=== PATIENT | female | born 1935 | race Caucasian/White ===

== ENCOUNTER 2016-09-06 16:43 | Emergency (ER) | payer OTHER ==
[~2016-09-06] VITALS: Ht 162.6 cm; Wt 72.6 kg
[~2016-09-06 16:43] MED LIST: AZITHROMYCIN250 M1 PO; DOXAZOSIN MESYLA8 M1 PO; METHYLPREDNISOLO4 M1 PO; PREDNISONE20 M1 PO; TESSALON PERLE100 M1 PO; ZITHROMAX500 M2 PO
--- NOTE | 2016-09-06 17:25 | ED MVC/FALL/TRAUMA COMPLAINT ---
History of Present Illness General Chief Complaint: Facial or Head Injury Stated Complaint: FALL DOWN 2-3 STAIRS,HEAD INJURY, (-) LOC Source: patient Exam Limitations: no limitations Vital Signs & Intake/Output Vital Signs & Intake/Output Vital Signs Date Time Temp Pulse Resp B/P B/P Pulse O2 O2 Flow FiO2 Mean Ox Delivery Rate 09/06 1840 98.3 89 15 124/74 100 Room Air 09/06 1726 99 Room Air 09/06 1651 97.8 89 16 135/78 96 Room Air Allergies Coded Allergies: cefadroxil (RASH 09/06/16) Reconcile Medications Acetaminophen (Tylenol Extra Strength) 500 MG TABLET 0.5 TAB PO DAILY PAIN ( Reported) Doxazosin Mesylate (Cardura) 4 MG TABLET 1 TAB PO DAILY BP (Reported) Methylprednisolone (Medrol) 4 MG TABLET 1 TAB PO DAILY POLYMYALGIA (Reported) Triage Note: PT STATES SHE FELL PUTTING GARBAGE. PT STATES SHE CAME UP FROM THE BASEMENT GOT TO THE SECOND STEP AND FELL BACK ON THE CEMENT FLOOR. NO LACERATION NOTED TO BACK OF HEAD. -LOC PT STATES SHE TAKES MEDROL AND STATES NO OTHER BLOOD THINNERS. Triage Nurses Notes Reviewed? yes HPI: Patient is an 81-year-old female presents complaining of head injury status post fall. Patient was walking upstairs when she slipped and fell falling down approximately 2-3 stairs. Patient struck the posterior scalp against the ground. Patient reports injury occurred approximately one hour ago. Pain is moderate, worsens with palpation. Patient denies taking anticoagulants or antiplatelets, is on prednisone chronically. Patient denies loss of consciousness, blurred vision, numbness, weakness, vomiting. (JOANNE CASILLAS) Past History Travel History Traveled to [place] past 21 day No Medical History Any Pertinent Medical History? see below for history Neurological: NONE EENT: NONE Cardiovascular: hypertension Respiratory: bronchitis Gastrointestinal: NONE Hepatic: NONE Renal: NONE Musculoskeletal: NONE Psychiatric: NONE Endocrine: NONE Blood Disorders: POLYMILITIS Cancer(s): NONE History of MRSA: No History of VRE: No History of CDIFF: No Surgical History Surgical History: non-contributory Psychosocial History Who do you live with Patient/Self Services at Home None What is your primary language Yoruba Tobacco Use: Quit >30 days ago ETOH Use: occasional use Illicit Drug Use: denies illicit drug use Family History Hx Contributory? No (JOANNE CASILLAS) Review of Systems Review of Systems Constitutional: Denies: chills, fever. Eyes: Denies: blurred vision. Ears, Nose, Throat, Mouth: Reports: no symptoms. Respiratory: Denies: cough, short of breath. Cardiovascular: Denies: chest pain, syncope. Gastrointestinal/Abdominal: Denies: abdominal pain, vomiting. Genitourinary: Reports: no symptoms. Musculoskeletal: Denies: back pain, neck pain. Skin: Reports: no symptoms. Neurological/Psychological: Reports: see HPI. (JOANNE CASILLAS) Physical Exam Physical Exam General Appearance: well developed/nourished, alert, awake Head: occipital scalp hematoma approximately 5 cm with tenderness. Eyes: Bilateral: normal appearance, PERRL, EOMI. Ears, Nose, Throat, Mouth: hearing grossly normal, moist mucous membrane Neck: normal inspection, supple, full range of motion, no midline or paraspinal tenderness Respiratory: chest non-tender, no respiratory distress, lungs clear Cardiovascular: regular rate/rhythm Gastrointestinal: soft, non-tender Back: normal inspection, normal range of motion, no vertebral tenderness Extremities: normal range of motion, full range of motion of all 4 extremities. no focal bony tenderness Neurologic/Psych: no motor/sensory deficits, awake, alert, oriented x 3, director of safety and security II- XII nml as tested Skin: warm/dry Core Measures ACS in differential dx? No Severe Sepsis Present: No Septic Shock Present: No (JOANNE CASILLAS) Progress Differential Diagnosis: aoritic dissection, abd injury, C/T/L spine injury, ext injury, ICH, pelvis injury, pnemothorax, spinal cord injury Plan of Care: Orders Procedure Date/time Status CT HEAD WO IV CONTRAST 09/[address] CERV SPINE WO IV CONTRAST 09/06 [address] Jack. Results of CT scans discussed with patient. No acute neurologic abnormalities. Patient appears stable for discharge. (JOANNE CASILLAS) Diagnostic Imaging: Viewed by Me: CT Scan. Discussed w/RAD: CT Scan. Comments: PATIENT: AGGIE WYNNE PRESENT AGE: 81 PATIENT ACCOUNT NO: [id number] : 36 LOCATION: [facility] ORDERING PHYSICIAN: JOANNE SAGE SERVICE DATE: 09/06/16 EXAM TYPE: CAT - CT CERV SPINE WO IV CONTRAST; CT HEAD WO IV CONTRAST EXAMINATION: CT HEAD AND CERVICAL SPINE WITHOUT CONTRAST CLINICAL INFORMATION: Occipital hematoma following fall. Evaluate for acute intracranial hemorrhage. COMPARISON: None. TECHNIQUE: Contiguous axial imaging was performed from the thoracic inlet to the vertex without intravenous administration of contrast. 2-D coronal and sagittal reformatted images were obtained at the acquisition workstation. DLP: 873 mGy-cm. FINDINGS: Head: Noncontrast CT imaging of the head demonstrates a large right parieto-occipital hematoma with associated soft tissue swelling. No acute intracranial abnormality is identified. There is no acute intracranial hemorrhage, mass or mass effect or abnormal extra-axial fluid collections. The density within the dural venous sinuses is within normal limits. The ventricles are normal in size, without hydrocephalus. There are no focal areas of hypoattenuation within a vascular distribution to suggest acute transcortical ischemia. The basilar cisterns are patent. No acute calvarial abnormality is identified. Soft tissues appear unremarkable. The imaged paranasal sinuses and mastoid air cells are well aerated. Cervical spine: Noncontrast CT of the cervical spine demonstrates moderate to severe multilevel degenerative disc disease and facet arthrosis of the cervical spine. Degenerative changes are most significant at the atlantoaxial articulation as well as at C4-C5. No acute cervical spine fracture or subluxation is identified. Vertebral body heights appear grossly preserved. The atlantoaxial and craniocervical junctions are intact. Prevertebral soft tissues are within normal limits. The included bilateral lung apices are clear. Disc osteophyte complexes, bilateral facet arthrosis and uncovertebral hypertrophy contribute to varying degrees of neuroforaminal narrowing and spinal canal stenosis. Evaluation of the individual levels demonstrates: C2-C3: Bilateral facet arthrosis and uncovertebral hypertrophy contribute to mild bilateral neuroforaminal narrowing. No significant spinal canal stenosis. C3-C4: Uncovertebral hypertrophy and bilateral facet arthrosis contributing to moderate right-sided neuroforaminal narrowing. There is mild left-sided neuroforaminal narrowing. No significant spinal canal stenosis. C4-C5: Bilateral facet arthrosis and uncovertebral hypertrophy contributing to moderate bilateral neuroforaminal narrowing. No significant spinal canal stenosis. C5-C6: Uncovertebral hypertrophy and bilateral facet arthrosis contribute to moderate left-sided neuroforaminal narrowing, mild right-sided neuroforaminal narrowing. No significant spinal canal stenosis. C6-C7: Mild bilateral neuroforaminal narrowing secondary to uncovertebral hypertrophy and facet arthrosis. C7-T1: No significant neuroforaminal narrowing or spinal canal stenosis. IMPRESSION: 1. Large parieto-occipital hematoma with associated soft tissue swelling. Otherwise, no acute intracranial abnormality. 2. Moderate to severe multilevel degenerative disc disease and facet arthrosis of the cervical spine, without acute cervical spine fracture or subluxation. DICTATED BY: LUCRETIA PRADO MD DATE/TIME DICTATED:09/06/161807 ELECTRIC ACCOUNTING MACHINE OPERATOR:RAJ DATE/TIME TRANSCRIBED:09/06/161807 CONFIDENTIAL, DO NOT COPY WITHOUT APPROPRIATE AUTHORIZATION. <Electronically signed in Other Vendor System> SIGNED BY: LUCRETIA PRADO MD 09/06/16 521 (JOANNE CASILLAS) Departure Departure Disposition: HOME OR SELF CARE Condition: Stable Clinical Impression Primary Impression: Hematoma of scalp Qualifiers: Encounter type: initial encounter Qualified Code: S00.03XA - Contusion of scalp, initial encounter Referrals: PUSHPA TORRES,SAUNDRA Dooley (PCP/Family) Additional Instructions: Tylenol as directed for pain. Ice the affected area for 10-20 minutes 4-5 times a day. Follow up with her primary doctor if no improvement within one week. Return to the emergency department if numbness, weakness, pain uncontrollable, or worsening of symptoms. Departure Forms: Customer Survey General Discharge Information (JOANNE CASILLAS) PA/EDGE GLUER Co-Sign Statement Statement: ED Attending supervision documentation- x I saw and evaluated the patient. I have also reviewed all the pertinent lab results and diagnostic results. I agree with the findings and the plan of care as documented in the PA's/EDGE GLUER's documentation. [] I have reviewed the ED Record and agree with the PA's/EDGE GLUER's documentation. [] Additions or exceptions (if any) to the PAs/EDGE GLUER's note and plan are summarized below: [] (ZARIA TORRES,KATHRIN)
[2016-09-06] MEDS ORDERED: CARDURA4 M1 PO (17:26)
[2016-09-06] MEDS ORDERED: MEDROL4 M1 PO (17:26)
[2016-09-06] MEDS ORDERED: TYLENOL EXTRA500 M2 PO (17:27)
--- NOTE | 2016-09-06 18:31 | CT SCAN REPORT ---
EXAMINATION: CT HEAD AND CERVICAL SPINE WITHOUT CONTRAST CLINICAL INFORMATION: Occipital hematoma following fall. Evaluate for acute intracranial hemorrhage. COMPARISON: None. TECHNIQUE: Contiguous axial imaging was performed from the thoracic inlet to the vertex without intravenous administration of contrast. 2-D coronal and sagittal reformatted images were obtained at the acquisition workstation. DLP: 873 mGy-cm. FINDINGS: Head: Noncontrast CT imaging of the head demonstrates a large right parieto-occipital hematoma with associated soft tissue swelling. No acute intracranial abnormality is identified. There is no acute intracranial hemorrhage, mass or mass effect or abnormal extra-axial fluid collections. The density within the dural venous sinuses is within normal limits. The ventricles are normal in size, without hydrocephalus. There are no focal areas of hypoattenuation within a vascular distribution to suggest acute transcortical ischemia. The basilar cisterns are patent. No acute calvarial abnormality is identified. Soft tissues appear unremarkable. The imaged paranasal sinuses and mastoid air cells are well aerated. Cervical spine: Noncontrast CT of the cervical spine demonstrates moderate to severe multilevel degenerative disc disease and facet arthrosis of the cervical spine. Degenerative changes are most significant at the atlantoaxial articulation as well as at C4-C5. No acute cervical spine fracture or subluxation is identified. Vertebral body heights appear grossly preserved. The atlantoaxial and craniocervical junctions are intact. Prevertebral soft tissues are within normal limits. The included bilateral lung apices are clear. Disc osteophyte complexes, bilateral facet arthrosis and uncovertebral hypertrophy contribute to varying degrees of neuroforaminal narrowing and spinal canal stenosis. Evaluation of the individual levels demonstrates: C2-C3: Bilateral facet arthrosis and uncovertebral hypertrophy contribute to mild bilateral neuroforaminal narrowing. No significant spinal canal stenosis. C3-C4: Uncovertebral hypertrophy and bilateral facet arthrosis contributing to moderate right-sided neuroforaminal narrowing. There is mild left-sided neuroforaminal narrowing. No significant spinal canal stenosis. C4-C5: Bilateral facet arthrosis and uncovertebral hypertrophy contributing to moderate bilateral neuroforaminal narrowing. No significant spinal canal stenosis. C5-C6: Uncovertebral hypertrophy and bilateral facet arthrosis contribute to moderate left-sided neuroforaminal narrowing, mild right-sided neuroforaminal narrowing. No significant spinal canal stenosis. C6-C7: Mild bilateral neuroforaminal narrowing secondary to uncovertebral hypertrophy and facet arthrosis. C7-T1: No significant neuroforaminal narrowing or spinal canal stenosis. IMPRESSION: 1. Large parieto-occipital hematoma with associated soft tissue swelling. Otherwise, no acute intracranial abnormality. 2. Moderate to severe multilevel degenerative disc disease and facet arthrosis of the cervical spine, without acute cervical spine fracture or subluxation.
[2016-09-06 18:40] VITALS: BP 124/74
== END 2016-09-06 18:40 ==
LOC: ERH 16:43
DX: S00.03XA Contusion of scalp, initial encounter (principal); W10.9XXA Fall (on) (from) unspecified stairs and steps, initial encounter; Y93.01 Activity, walking, marching and hiking; Y92.9 Unspecified place or not applicable